=== PATIENT | female | born 1945 | race Caucasian/White ===

== ENCOUNTER → 2016-12-29 | Outpatient (CLI) | payer MEDICARE, BC, OTHER ==
--- NOTE | 2016-12-30 12:05 | RADONC ---
RADIATION ONCOLOGY FOLLOWUP NOTE DATE: 12/29/2016 CHART NUMBER: [id number] DIAGNOSIS: Right breast cancer. STAGE: IA, [id number]. ECOG PERFORMANCE STATUS: 0. FOLLOWUP NOTE Ms. Gray is a very pleasant 71-year-old white female with the diagnosis of a stage IA, [id number], moderately differentiated infiltrating ductal carcinoma of the right breast who is presenting to us today for routine followup visit 1 year and 9 months post completion of external beam radiation therapy. The patient presents today reporting that she is doing quite well with no complaints at this time related to her radiation therapy or disease. She has no breast or bone pain. The patient's review of systems is noncontributory. She denies nausea, vomiting, fevers, chills, night sweats, diplopia, headaches, anxiety or depression, anorexia, weight loss, visual disturbances, chest pain, urinary or bowel difficulties, bone pain, or neurological problems. PHYSICAL EXAMINATION: The patient is a well-developed, well-nourished, female in no acute distress. HEENT exam is normocephalic, atraumatic. Extraocular movements are intact. There is no palpable cervical, supraclavicular, infraclavicular, axillary, or inguinal lymphadenopathy present. Lungs are clear to auscultation and percussion. Heart has a regular rate and rhythm. Abdomen is benign with no hepatosplenomegaly, masses, or tenderness. Breast examination reveals no masses or discharge bilaterally. Skeletal examination reveals no tenderness to pressure or percussion of the bony skeleton. Extremities reveal no clubbing, cyanosis, or edema. Neurologic exam is grossly intact, as is the remainder of the physical examination. ASSESSMENT: The patient is clinically RACHNA at this time and will be seen by me again in 6 months for further followup. She will also continue to be followed by her other physicians as well. cc: *Sofi Machado MD
== END ==
LOC: M ONCR 10:49
PROVIDERS: ATTEND Radiology Radiation Oncology
DX: C50.511 Malignant neoplasm of lower-outer quadrant of right female breast (principal)

== ENCOUNTER → 2017-07-20 | Outpatient (CLI) | payer MEDICARE, BC, OTHER ==
--- NOTE | 2017-07-21 09:35 | RADONC ---
RADIATION ONCOLOGY FOLLOWUP NOTE DATE: 07/20/2017 CHART NUMBER: [id number] DIAGNOSIS: Right lung cancer. STAGE IA, [id number]. ECOG PERFORMANCE STATUS: 0 FOLLOWUP NOTE: Ms. Gray is a very pleasant 71-year-old white female with the diagnosis of a stage IA, [id number] moderately differentiated infiltrating ductal carcinoma of the right breast who is presenting to us today for routine followup visit 2-1/2 years post completion of external beam radiation therapy. The patient presents today reporting that she is doing quite well with no complaints at this time related to her radiation therapy or disease. She has no breast or bone pain. The patient's review of systems is noncontributory. She denies nausea, vomiting, fevers, chills, night sweats, diplopia, headaches, anxiety or depression, anorexia, weight loss, visual disturbances, chest pain, urinary or bowel difficulties, bone pain, or neurological problems. PHYSICAL EXAMINATION: The patient is a well-developed, well-nourished female in no acute distress. HEENT exam is normocephalic, atraumatic. Extraocular movements are intact. There is no palpable cervical, supraclavicular, infraclavicular, axillary, or inguinal lymphadenopathy present. Lungs are clear to auscultation and percussion. Heart has a regular rate and rhythm. Abdomen is benign with no hepatosplenomegaly, masses, or tenderness. Breast examination reveals no masses or discharge bilaterally. Skeletal examination reveals no tenderness to pressure or percussion of the bony skeleton. Extremities reveal no clubbing, cyanosis, or edema. Neurologic exam is grossly intact, as is the remainder of the physical examination. ASSESSMENT: The patient is clinically RACHNA at this time and will be seen by us again in 6 months for further followup. She will also continue to be followed by her other physicians as well. cc: Shannen Machado MD
== END ==
LOC: M ONCR 11:15
PROVIDERS: ATTEND Radiology Radiation Oncology
DX: C50.511 Malignant neoplasm of lower-outer quadrant of right female breast (principal)

== ENCOUNTER → 2018-08-02 | Outpatient (CLI) | payer MEDICARE, BC, OTHER | LOC: M ONCR 10:43 | DX: C50.911 Malignant neoplasm of unspecified site of right female breast (principal) | CPT/HCPCS: G0463 ==